=== PATIENT | female | born 1970 | race Caucasian/White ===

== ENCOUNTER 2021-11-07 09:25 | Emergency (ER) | payer OTHER ==
[~2021-11-07] VITALS: Ht 167.6 cm; Wt 108.9 kg
[2021-11-07] MEDS ORDERED: ANXIETY MED (09:37)
[2021-11-07] MEDS ORDERED: ALLEGRA ALLERG180 MG PO (09:37)
[2021-11-07] MEDS ORDERED: LOSARTAN POTASS50 MG PO (09:37)
[2021-11-07 11:44] LABS: ABSOLUTE BASOPHILS 0.1 thou/uL (0.0-0.2); ABSOLUTE EOSINOPHILS 0.1 thou/uL (0.0-0.7); ABSOLUTE LYMPHOCYTES 1.3 thou/uL (0.8-5.3); ABSOLUTE MONOCYTES 0.6 thou/uL (0.0-1.2); ABSOLUTE NEUTROPHILS 6.5 thou/uL (1.6-8.1); BASOPHILS 0.9 %; EOSINOPHILS 1.3 %; HEMATOCRIT 45.8 % (37.0-47.0); HEMOGLOBIN 15.5 gm/dL (12.0-15.0); LYMPHOCYTES 14.7 %; MCH 30.4 pg (26.0-34.0); MCHC 33.8 g/dL (28.0-37.0); MONOCYTES 6.5 %; MPV 8.2 fl. (7.2-11.1); NUCLEATED RBCS 0 /100WBC; PLATELET COUNT* 296 thou/uL (150-400); POLYS 76.6 %; RBC 5.08 mil/uL (4.20-5.00); RDW-CV 13.3 % (10.5-14.5); WBC 8.5 thou/uL (4.0-11.0)
[2021-11-07 12:00] LABS: CALCIUM 9.2 mg/dL (8.5-10.1); CREATININE 0.9 mg/dL (0.6-1.3); POTASSIUM 3.7 mmol/L (3.5-5.1)
[2021-11-07 12:11] LABS: MAGNESIUM 1.9 mg/dL (1.8-2.4); TOTAL BILIRUBIN 0.4 mg/dL (<0.1-1.0); TOTAL PROTEIN 8.6 g/dL (6.4-8.2)
--- NOTE | 2021-11-07 15:40 | EKG ---
[place] [address] ELECTROCARDIOGRAM REPORT Name: GENET NARAYAN Room: [facility]#: [id number] Admission: 11/07/21 Attend Phys: Discharge: Date of : 72 Date of Service: 11/07/21935 Report #: [id number] THIS REPORT FOR: //name// [facility] ED Test Date: 2021-11-07 Test Time: 09:36:39 Pat Name: GENET NARAYAN Department: Room: Gender: Key Worker: [facility] : 1970 Requested By: Chelsea Vazquez Order Number: [id number] MD: Fredrick Hernández Measurements Intervals [place] Rate: 137 P: 71 SC: 123 QRS: 2 QRSD: 92 T: 45 QT: 304 QTc: 459 Interpretive Statements Sinus tachycardia Probable left atrial enlargement No previous ECG available for comparison Electronically Signed On 11-07-2021 15:40:13 PROCESS CONTROL BOARD OPERATOR by Fredrick Hernández [email or web address] <ELECTRONICALLY SIGNED> By: Fredrick Hernández MD, [facility] 11/07/21 1540 5 Fredrick Hernández MD, FACC /EPI
[2021-11-07 15:51] VITALS: BP 151/90
== END 2021-11-07 15:52 | disposition home or self-care (01) ==
LOC: M.ERS 09:25
PROVIDERS: Nurse Practitioner Family
DX: R07.89 Other chest pain (principal); R61 Generalized hyperhidrosis; R06.02 Shortness of breath; I10 Essential (primary) hypertension; E78.00 Pure hypercholesterolemia, unspecified; E66.9 Obesity, unspecified; Z98.890 Other specified postprocedural states; Z90.89 Acquired absence of other organs; Z79.899 Other long term (current) drug therapy; Z68.38 Body mass index [BMI] 38.0-38.9, adult